=== PATIENT | male | born 1930 | race Caucasian/White ===

== ENCOUNTER 2018-07-28 10:29 | Inpatient (IN) | payer MEDICARE ==
[~2018-07-28] VITALS: Ht 165.1 cm; Wt 68.9 kg
[2018-07-28 13:09] LABS: BASOPHILS % 1.3 % (0.0-2.0); HEMATOCRIT. 34.8 % (42.0-52.0); HEMOGLOBIN. 11.2 g/dL (14.0-18.0); LYMPHOCYTES % 14.1 % (20.0-50.0); MEAN CORPUSCULAR HEMOGLOBIN 29.2 pg (28.0-32.0); MEAN CORPUSCULAR VOLUME 90.3 fL (80.0-94.0); MEAN PLATELET VOLUME 9.4 fl (7.4-10.4); MONOCYTES % 8.1 % (2.0-8.0); NEUTROPHILS % 74.5 % (40.0-76.0); PLATELET 113 x1000/uL (130-400); RED BLOOD CELL COUNT 3.85 mill/uL (4.7-6.1); RED CELL DISTRIBUTION WIDTH 15.6 % (11.6-14.6)
[2018-07-28 13:24] LABS: CHLORIDE 110 mEq/L (98-107)
[2018-07-28 13:30] LABS: ETHANOL BLOOD < 10 mg/dL
[2018-07-28] MEDS ORDERED: SODIUM BICARBONATE 8.4% 1 MEQ/ML 50ML SYR IV ONE (15:00)
[2018-07-28] MEDS ORDERED: SODIUM POLYSTYRENE SULFONATE 15 G/60 ML BOT PO ONE (15:00)
[2018-07-28] MEDS ORDERED: ALBUTEROL (0.083%) 2.5MG/3ML NEB HHN ONE (15:00)
[2018-07-28] MEDS ORDERED: SODIUM CHLORIDE 0.9% 1,000 ML IV ONE (15:01)
[2018-07-28] MEDS ORDERED: ASPIRIN 81MG TABLET PO ONE (15:15)
[2018-07-28 17:25] LABS: CLARITY URINE CLEAR (CLEAR); COLOR URINE YELLOW (YELLOW); KETONES URINE NEGATIVE (NEGATIVE); LEUKOCYTE ESTERASE URINE TRACE (NEGATIVE); NITRITE URINE NEGATIVE (NEGATIVE); OCCULT BLOOD URINE NEGATIVE (NEGATIVE); PROTEIN URINE TRACE (NEGATIVE); SPECIFIC GRAVITY URINE 1.017 (1.005-1.030); UROBILINOGEN URINE 0.2 E.U./dL (0.2-1.0)
[2018-07-28] MEDS ORDERED: CEFTRIAXONE 1 G PREMIX 50 ML IV ONE (17:45)
[2018-07-28 17:46] LABS: *AMPHETAMINES SCREEN URINE NEGATIVE (NEGATIVE); *BARBITURATES SCREEN URINE NEGATIVE (NEGATIVE); *BENZODIAZEPINES SCREEN URINE NEGATIVE (NEGATIVE); *COCAINE SCREEN URINE NEGATIVE (NEGATIVE)
[2018-07-28 17:47] LABS: CANNABINOID URINE SCREEN NEGATIVE (NEGATIVE); METHADONE URINE SCREEN NEGATIVE (NEGATIVE); OPIATES URINE SCREEN NEGATIVE (NEGATIVE); PHENCYCLIDINE URINE SCREEN NEGATIVE (NEGATIVE)
[2018-07-28 17:50] VITALS: BP 154/54
[2018-07-28 17:53] VITALS: BP 154/54
[2018-07-28] MEDS ORDERED: DONE10TA43 MT (19:00)
[2018-07-28] MEDS ORDERED: ASPI-1159 MT (19:00)
[2018-07-28] MEDS ORDERED: MEMA10TA19 MT (19:00)
[2018-07-28] MEDS ORDERED: GABA-529 MT (19:00)
[2018-07-28] MEDS ORDERED: AMLO5TAB88 MT (19:00)
[2018-07-28] MEDS ORDERED: ATOR-2 MT (19:00)
[2018-07-28] MEDS ORDERED: LORA10TA7 MT (19:00)
[2018-07-28] MEDS ORDERED: ALBU18HF2 IH (19:00)
[2018-07-28 20:00] VITALS: BP 134/45
[2018-07-28] MEDS ORDERED: DEXT 5%/0.45% NACL 1000ML 1,000 ML IV SCH (20:39)
[2018-07-28] MEDS ORDERED: ALBUTEROL (0.083%) 2.5MG/3ML NEB HHN PRN (20:45)
[2018-07-28] MEDS ORDERED: GUAIFENESIN 200MG/10ML SUGAR FREE UDC PO PRN (20:45)
[2018-07-28] MEDS ORDERED: ONDANSETRON HCL 4MG/2ML INJ IV PRN (20:45)
[2018-07-28] MEDS ORDERED: CLONIDINE 0.1MG TABLET PO PRN (20:45)
[2018-07-28] MEDS ORDERED: ACETAMINOPHEN 325MG TABLET PO PRN (20:45)
[2018-07-28] MEDS ORDERED: MAGNESIUM/ALUMINUM HYDROXIDE/SIMETHICONE 30ML UDC PO PRN (20:45)
[2018-07-28] MEDS ORDERED: ATORVASTATIN CALCIUM 40MG TABLET PO SCH (21:00)
[2018-07-28] MEDS: GABAPENTIN 100MG CAPSULE PO SCH (22:00)
[2018-07-29] VITALS: BP 143/38
[2018-07-29 06:00] VITALS: BP 146/50
[2018-07-29] MEDS: GABAPENTIN 100MG CAPSULE PO SCH ×2 (06:57→14:04)
[2018-07-29 08:00] VITALS: BP 144/51
[2018-07-29] MEDS ORDERED: LORATADINE 10MG TABLET PO SCH (09:00)
[2018-07-29] MEDS ORDERED: ASPIRIN 81MG EC TABLET PO SCH (09:00)
[2018-07-29] MEDS ORDERED: MEMANTINE HCL 5MG TABLET PO SCH (09:00)
[2018-07-29] MEDS ORDERED: AMLODIPINE 5MG TABLET PO SCH (09:00)
[2018-07-29] MEDS ORDERED: DONEPEZIL HCL 10MG TABLET PO SCH (09:00)
[2018-07-29 12:00] VITALS: BP 124/59
[2018-07-29 12:24] VITALS: BP_SYST 104; BP_SYST 130; BP_DIAS 44; BP_DIAS 48
[2018-07-29 14:24] VITALS: BP 124/59
== END 2018-07-29 14:40 | disposition home or self-care (01) | DRG 74 ==
LOC: ER 10:29 → EDBD 10:29 → 5WST 15:30 → EDBEDREQ 15:35 → ENRESERV 16:13
PROVIDERS: ADMIT Internal Medicine; ATTEND Internal Medicine
DX: G90.8 Other disorders of autonomic nervous system (principal); N17.9 Acute kidney failure, unspecified; F02.80 Dementia in other diseases classified elsewhere, unspecified severity, without behavioral disturbance, psychotic disturbance, mood disturbance, and anxiety; G30.9 Alzheimer's disease, unspecified; I12.9 Hypertensive chronic kidney disease with stage 1 through stage 4 chronic kidney disease, or unspecified chronic kidney disease; Y93.89 Activity, other specified; N18.9 Chronic kidney disease, unspecified; W07.XXXA Fall from chair, initial encounter; Y92.89 Other specified places as the place of occurrence of the external cause; Y99.8 Other external cause status; Z85.46 Personal history of malignant neoplasm of prostate; Z86.73 Personal history of transient ischemic attack (TIA), and cerebral infarction without residual deficits; Z79.51 Long term (current) use of inhaled steroids; Z79.82 Long term (current) use of aspirin; Z79.899 Other long term (current) drug therapy; E87.5 Hyperkalemia
CPT/HCPCS: 36415; 71045; 80048; 80305; 82962; 84484; 93005; 94640; 96374; 99285; G0482; J0696; J3490; J7030; J7611

== ENCOUNTER 2018-08-29 09:32 | Emergency (ER) | payer MEDICARE ==
[~2018-08-29] VITALS: Ht 170.2 cm; Wt 63.0 kg
[~2018-08-29 09:32] MED LIST: ALBU18HF2 IH; AMLO5TAB88 MT; ASPI-1159 MT; ATOR-2 MT; DONE10TA43 MT; GABA-529 MT; LORA10TA7 MT; MEMA10TA19 MT
[2018-08-29] MEDS ORDERED: SODIUM CHLORIDE 0.9% 1,000 ML IV ONE (11:12)
[2018-08-29 12:56] LABS: BASOPHILS % 1.3 % (0.0-2.0); EOSINOPHILS % 1.3 % (0.0-5.0); HEMATOCRIT. 33.5 % (42.0-52.0); LYMPHOCYTES % 11.5 % (20.0-50.0); MEAN CORPUSCULAR HEMOGLOBIN 29.8 pg (28.0-32.0); MEAN CORPUSCULAR VOLUME 90.9 fL (80.0-94.0); MEAN PLATELET VOLUME 9.7 fl (7.4-10.4); MONOCYTES % 4.6 % (2.0-8.0); NEUTROPHILS % 81.3 % (40.0-76.0); PLATELET 123 x1000/uL (130-400); RED BLOOD CELL COUNT 3.69 mill/uL (4.7-6.1); RED CELL DISTRIBUTION WIDTH 14.9 % (11.6-14.6)
[2018-08-29 13:04] LABS: CHLORIDE 109 mEq/L (98-107)
[2018-08-29 16:00] VITALS: BP 160/66
== END 2018-08-29 16:12 | disposition home or self-care (01) ==
LOC: ER 09:32
DX: S80.01XA Contusion of right knee, initial encounter (principal); R78.89 Finding of other specified substances, not normally found in blood; R55 Syncope and collapse; W18.39XA Other fall on same level, initial encounter; Y93.89 Activity, other specified; Y92.89 Other specified places as the place of occurrence of the external cause; Y99.8 Other external cause status; F03.90 Unspecified dementia, unspecified severity, without behavioral disturbance, psychotic disturbance, mood disturbance, and anxiety; Z79.899 Other long term (current) drug therapy
CPT/HCPCS: 36415; 71045; 73502; 73562; 80053; 83690; 83880; 84484; 85025; 93005; 96360; 99284; J7030; J7040